=== PATIENT | male | born 1990 | race African-American/Black ===

== ENCOUNTER 2019-01-09 21:14 | Emergency (ER) | payer SELFPAY ==
[~2019-01-09] VITALS: Ht 162.6 cm; Wt 59.0 kg
[2019-01-09] MEDS: TETANUS, DIPHTHERIA, PERTUSSIS VAC/PF 0.5ML (>7YR OLD) IM ONE (23:52)
[2019-01-09] MEDS: IBUPROFEN 600MG TABLET PO ONE (23:53)
[2019-01-10 00:15] VITALS: BP 119/80
== END 2019-01-10 00:15 | disposition home or self-care (01) ==
LOC: ER 21:14
DX: S91.331A Puncture wound without foreign body, right foot, initial encounter (principal); S80.01XA Contusion of right knee, initial encounter; F12.10 Cannabis abuse, uncomplicated; F17.200 Nicotine dependence, unspecified, uncomplicated; Z88.8 Allergy status to other drugs, medicaments and biological substances; Z96.651 Presence of right artificial knee joint; W22.8XXA Striking against or struck by other objects, initial encounter; Y93.89 Activity, other specified; Y92.89 Other specified places as the place of occurrence of the external cause; Y99.8 Other external cause status
CPT/HCPCS: 90471; 90715; 99283